=== PATIENT | male | born 1960 | race Caucasian/White ===

== ENCOUNTER 2017-05-05 09:34 | Emergency (ER) | payer BC ==
--- NOTE | 2017-05-05 09:58 | EDM.PDOC ---
ED HPI GENERAL MEDICAL PROBLEM - General Chief Complaint: Trauma Stated Complaint: FALL/HEAD INJURY/MEMORY LOSS Time Seen by Provider: 05/05/17 09:45 Source of Information: Reports: Patient, Family History Limitations: Reports: Altered Mental Status - History of Present Illness INITIAL COMMENTS - FREE TEXT/NARRATIVE: 56-year-old male presents to the ED for evaluation of closed head injury. Patient apparently was in the [place] this morning with cows and 2 bowls were fighting and pushing the cows. The cows in turn ran over top of him basically causing him to do almost a somersault and he landed hard on his head on the frozen ground. There was no loss of consciousness but he was transiently days and still remains confused with amnesia for the event. He can't remember at all what is happened to him. He can walk and talk normally. States his jaw feels like it's tight like he got slammed. He has had a previous fractured mandible on the right side with plate and screws. Denies any neck or significant spine pain. No nausea vomiting. Has have a mild headache at this time. No open wounds on his head. Onset: Today Onset Date: 05/05/17 Onset Time: 09:00 Duration: Minutes: Location: Reports: Head Quality: Reports: Ache (Mild headache) Severity: Moderate Improves with: Reports: None (Amnesia for the event) Worsens with: Reports: None Context: Reports: Trauma (Was essentially knocked to the ground hard by 2 cows did almost a somersault and landed hard on his head. He has no recollection of what has happened to him if the history is provided by his .) Associated Symptoms: Reports: Confusion. 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: Other (see below) (None.) Face Pain Score (Numeric/FACES): 4 - Related Data Allergies Allergy/AdvReac Type Severity Reaction Status Date / Time seasonal Allergy Cough Uncoded 05/05/17 09:51 Home Meds: Home Meds Fosinopril [Monopril] 10 mg PO DAILY 05/05/17 [History] amLODIPine [Norvasc] 15 mg PO DAILY 05/05/17 [History] atorvaSTATin [Lipitor] 20 mg PO DAILY 05/05/17 [History] Past Medical History Cardiovascular History: Reports: Hypertension Social & Family History - Living Situation & Occupation Living situation: Reports: 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 But there is no malocclusion. No injuries to the tongue or spitting up of blood.), Other Cardiovascular: Reports: No Symptoms, Other GI/Abdominal: Reports: No Symptoms (History of hypertension well controlled on current medications.) Genitourinary: Reports: No Symptoms Musculoskeletal: Reports: Back Pain Skin: Reports: No Symptoms (Some spasm in his left mid back with no palpable rib fractures.) Neurological: Reports: Confusion, Dizziness Psychiatric: Reports: No Symptoms ED EXAM, GENERAL - Physical Exam Exam: See Below Exam Limited By: Altered Mental Status (Amnesia for what is happened to him this morning. He is otherwise alert and oriented and answers) General Appearance: Alert ( other questions appropriately.), WD/WN, Anxious Eye Exam: Bilateral Eye: Normal Inspection, PERRL Ears: Normal External Exam, Normal TMs Nose: Normal Inspection, Normal Mucosa Throat/Mouth: Normal Inspection, Normal Lips, Normal Teeth, Normal Oropharynx, Other (No malocclusion) Head: Other (No obvious hematomas or scalp bruises or injuries identified on exam.) Neck: Normal Inspection, Tender Lateral, Tender Midline (Mild on the left side) . No: Lymphadenopathy (L), Lymphadenopathy (R) Respiratory/Chest: No Respiratory Distress, Lungs Clear, Normal Breath Sounds, No Accessory Muscle Use, Other Cardiovascular: Normal Peripheral Pulses, Regular Rate, Rhythm, No Edema, No Murmur (No obvious rib or sternal injuries on palpation.) Peripheral Pulses: 2+: Posterior Tibial (L), Posterior Tibial (R), Dorsalis Pedis (L), Dorsalis Pedis (R) GI/Abdominal: Normal Bowel Sounds, Soft, Non-Tender, No Organomegaly, No Distention Back Exam: Normal Inspection, Full Range of Motion, Other. No: CVA Tenderness ( L), CVA Tenderness (R) Extremities: Normal Inspection (No abrasions contusions or abnormalities identified on palpation of the lumbar thoracic spine.), Normal Range of Motion, Non-Tender, No Pedal Edema, Normal Capillary Refill, Other Neurological: Alert (Walked into the ED.), Oriented, CN II-XII Intact, Normal Cognition, Normal Gait, Normal Reflexes, No Motor/Sensory Deficits, Memory Loss Recent Events (Amnesia for the event) Psychiatric: Normal Affect, Normal Mood Skin Exam: Warm, Dry, Intact, Normal Color, No Rash Course - Vital Signs Last Recorded V/S: Last Vital Signs Temp 36.9 C 05/05/17 09:44 Pulse Resp 16 05/05/17 09:44 BP 131/84 05/05/17 09:44 Pulse Ox 98 05/05/17 09:44 - Radiology Interpretation Free Text/Narrative:: 56-year-old male brought to the ED by his after injury by Anjali in the [place] this morning. Appears he was knocked to the ground very hard by cows moving aggressively hit his head hard on the frozen ground with no loss of consciousness but transiently dazed. He has amnesia for the event. He is somewhat frustrated by his confusion of not being able to remember what happened to him this morning. Neuro exam is completely normal there is no outward signs of trauma to the head neck ears nose or mouth. Chest wall also does not appear to be injured. - Re-Assessments/Exams Free Text/Narrative Re-Assessment/Exam: 05/05/17 10:[address] of the brain reveals no intracranial bleeding or mass effect. No skull fractures identified. There is very mild beginnings of small vessel skinny changes in both basal ganglia. CT of the cervical spine reveals no fractures in normal alignment. There is mild degenerative disc disease particular a from C4-C7 level. Patient is thus suffered a closed head injury with concussion with amnesia for the event. He will be advised to take life real easy for the next 2 weeks. Minimal exertional activity etc. 05/05/17 11:00: Patient felt quite dizzy when he first got up from the bed at the time of discharge and did lay back down for a period of time the second time he got up he felt better and he decided to leave Departure - Departure Time of Disposition: 10:25 Disposition: Home, Self-Care 01 Condition: Fair Clinical Impression: Closed head injury with concussion Qualifiers: Encounter type: initial encounter Loss of consciousness presence/duration: without LOC Qualified Code(s): S06.0X0A - Concussion without loss of consciousness, initial encounter - Discharge Information Instructions: Concussion, Adult, Cicn-ib-Lhda, Post-Concussion Syndrome, Easy- to-Read Referrals: PCP,None [Primary Care Provider] - Forms: ED Department Discharge Additional Instructions: Evaluation in the emergency room today in regards to close to injuries suffered in your not hard to the ground this morning by Kam in the [place]. You have no recollection of the events of this morning indicating a concussion has occurred. CT of the brain is within normal limits showing no intracranial bleeding or mass effect or skull fracture. Similarly CT of the neck bones was carried out as well 20% of head injuries have injuries to the neck. No injuries to the neck bones were identified. There is mild degenerative arthritic changes from C4-C7 which is normal for age. Treatment is time to heal. Basically the brain needs a rest for at least 48 hours where you don't have to cut straight hard work hard or do anything that would increase her blood pressure for the next 2 days. After this it's activity as tolerated with nothing that would protect her head at risk of another injury or concussion. He may experiencing slight blurred vision intermittently headache intermittent nausea feeling of being off balance all of these symptoms usually dissipate over a period of 7-10 days. It is okay to take Tylenol or Motrin for headache if needed. Follow-up with personal physician if not completely back to normal in 10 days' time.
--- NOTE | 2017-05-05 10:16 | CT ---
Head CT Technique: Multiple axial sections through the brain were obtained. Intravenous contrast not utilized. Comparison: No previous intracranial imaging. Findings: Ventricles along with basal cisterns and sulci over convexities are within normal limits for the patient's age. No abnormal parenchymal densities are seen. No evidence of intracranial hemorrhage. No midline shift or mass effect is seen. Bone window settings were reviewed which shows minimal fluid within the left maxillary sinus most likely due to retained secretions. No acute calvarial abnormality is seen. Impression: 1. Minimal fluid which is felt to be incidental within the left maxillary sinus. 2. No acute intracranial abnormality is identified. Diagnostic code #2
--- NOTE | 2017-05-05 10:20 | CT ---
CT cervical spine Technique: Multiple axial sections were obtained from above C1 inferiorly through the T1-T2 disc interspace. Reconstructed sagittal and coronal images were reviewed. Findings: Small metallic density is projected within the soft tissues of the posterior and lower neck which is likely old. Visualized sinuses and middle ear cavities are clear. Posterior skull base is intact. Vertebral bodies and posterior arches are intact. Vertebral bodies and disc spaces are maintained. No bony central or bony neural foraminal stenosis is seen. No abnormal subluxation is seen on the reconstructed sagittal images. Minimal degenerative change is noted between the dens and anterior arch of C1. Impression: 1. Nothing acute is identified on CT study of the cervical spine. Other incidental findings as noted above. Diagnostic code #2
== END 2017-05-05 11:05 | disposition home or self-care (01) ==
LOC: JD.ED 09:34
DX: S06.0X0A Concussion without loss of consciousness, initial encounter (principal); I10 Essential (primary) hypertension; Z79.899 Other long term (current) drug therapy; Z88.8 Allergy status to other drugs, medicaments and biological substances; W55.29XA Other contact with cow, initial encounter
CPT/HCPCS: 70450; 70450-26; 72125; 72125-26; 99283; 99284-25

== ENCOUNTER 2019-02-27 00:12 | Emergency (ER) | payer BC, OTHER ==
[2019-02-27] MEDS ORDERED: Metoclopramide 10 MG/2 ML SDV IVPUSH ONE (00:48)
[2019-02-27] MEDS ORDERED: HYDROmorphone 1 MG/ML Syringe IVPUSH ONE (00:48)
--- NOTE | 2019-02-27 00:49 | EDM.PDOC ---
ED HPI GENERAL MEDICAL PROBLEM - General Chief Complaint: Headache Stated Complaint: HEADACHE Time Seen by Provider: 02/27/19 00:47 Source of Information: Reports: Patient, Family () History Limitations: Reports: No Limitations - History of Present Illness INITIAL COMMENTS - FREE TEXT/NARRATIVE: 58-year-old male attends the ED with diffuse mid facial pain and headache. States last week he seen an oral surgeon and had 5 of his upper mid teeth removed at the same setting. His dentures were placed in the uppers at the same sitting. He states initially the pain wasn't too bad but over the last 12 hours the pain is intensified immensely. He's been taking Motrin all day and took 2 Tylenol No. 3's about 1800 hrs. which made no difference in the severity of the pain. Pain is in his upper gingiva. He took his dentures out this afternoon and can't put them back in because of swelling. Pain radiates up into his midface particular a burning in his nose and both maxillary sinuses and a severe pounding throbbing headache in the anterior face and head. Almost makes him nauseated. He did eat a little bit of rice for supper 9:00 tonight. No neck pain. No notable fever or chills. Onset: Gradual Onset Date: 02/26/19 (Gradual increased pain as the day went on yesterday. At present can't stand the severity of the pain) Duration: Hour(s):, Getting Worse Location: Reports: Face Quality: Reports: Ache (Mid face particularly upper gingiva both maxillary sinuses and nose.), Burning, Throbbing (Is more of a burning sensation in his nose) Severity: Severe (face. Pain is 10 out of 10) Improves with: Reports: None (Motrin and Tylenol 3 did not help at all.) Worsens with: Reports: None Context: Reports: Other. Denies: Activity, Exercise, Lifting, Sick Contact, Trauma Associated Symptoms: Reports: Headaches, Loss of Appetite, Nausea/Vomiting, Weakness. 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, Other (see below) (Motrin Tylenol 3) Headache Pain Score (Numeric/FACES): 9 - Related Data Allergies Allergy/AdvReac Type Severity Reaction Status Date / Time seasonal Allergy Cough Uncoded 02/27/19 00:27 Home Meds: Home Meds Fosinopril [Monopril] 10 mg PO DAILY 05/05/17 [History] amLODIPine [Norvasc] 15 mg PO DAILY 05/05/17 [History] atorvaSTATin [Lipitor] 20 mg PO DAILY 05/05/17 [History] Amoxicillin/Potassium Clav [Augmentin 500-125 Tablet] 1 each PO BID #20 tablet 02/27/19 [Rx] oxyCODONE HCl/Acetaminophen [Percocet 5-325 mg Tablet] 1 - 2 each PO Q4H PRN # 18 tablet 02/27/19 [Rx] Past Medical History Cardiovascular History: Reports: High Cholesterol, Hypertension - Past Surgical History HEENT Surgical History: Reports: Oral Surgery, Other (See Below) Other HEENT Surgeries/Procedures: fractured jaw with surgical repair Social & Family History - Tobacco Use Smoking Status *Q: Never Smoker - Caffeine Use Caffeine Use: Reports: Coffee - Living Situation & Occupation Living situation: Reports: 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 Denies: Fever, Chills HEENT: Reports: Other (Pain in the upper gingiva at recent multiple teeth extractions. On 5 days ago. Pain in the mid face over the maxillary sinuses.). Denies: Glasses, Hearing Loss, Nosebleed, Sinus Problem, Throat Pain, Throat Swelling Respiratory: Reports: No Symptoms Cardiovascular: Reports: Blood Pressure Problem Endocrine: Reports: No Symptoms GI/Abdominal: Reports: Decreased Appetite, Nausea : Reports: Frequency, Other Musculoskeletal: Reports: Back Pain (Nocturia usually 2), Joint Pain (Knees hips lower back) Skin: Reports: No Symptoms Neurological: Reports: No Symptoms Psychiatric: Reports: No Symptoms Hematologic/Lymphatic: Reports: No Symptoms Immunologic: Reports: No Symptoms - Physical Exam Exam: See Below Exam Limited By: No Limitations General Appearance: Alert, WD/WN, Moderate Distress (Appears to be in significant discomfort.) Eye Exam: Bilateral Eye: Normal Inspection Ears: Normal TMs Nose: Normal Inspection Throat/Mouth: Other (The upper gingiva are about 3 times thicker than normal. There are not erythematous they're just very swollen. You can see where his teeth were extracted and there is still grayish yellowish material in them almost as if the roots of the tooth are still present. He has pain to palpation over both maxillary sinuses.) Head Exam: Facial Tenderness, Sinus Tenderness (Over both maxillary sinuses. X- ray sinus) Neck: Normal Inspection, Supple, Non-Tender, Full Range of Motion. No: Lymphadenopathy (R), Tender Midline Respiratory/Chest: No Respiratory Distress, Lungs Clear, Normal Breath Sounds, No Accessory Muscle Use, Chest Non-Tender Cardiovascular: Normal Peripheral Pulses, Regular Rate, Rhythm, No Edema, No Gallop, No Murmur, No Rub Neuro Exam (Abbreviated): Alert, Oriented, CN II-XII Intact, Normal Cognition Extremities: Normal Inspection, Normal Range of Motion, Non-Tender Psychiatric: Normal Mood, Other Skin Exam: Warm, Dry, Normal Color, No Rash Course - Vital Signs Last Recorded V/S: Last Vital Signs Temp 36.2 C 02/27/19 00:23 Pulse 61 02/27/19 00:23 Resp 16 02/27/19 00:23 BP 160/84 H 02/27/19 00:23 Pulse Ox 93 L 02/27/19 00:23 - Orders/Labs/Meds Orders: Active Orders 24 hr Category Date Time Status Maxillofacial w/o CM [Max Facial Sinus wo Cont] [CT] Exams 02/27/19 00:48 Taken Stat Meds: Medications Discontinued Medications Generic Name Dose Route Start Last Admin Trade Name Venturaq PRN Reason Stop Dose Admin Dexamethasone 10 mg 02/27/19 01:36 02/27/19 01:46 Dexamethasone IV 02/27/19 01:37 10 mg ONETIME ONE Administration Hydromorphone HCl 1 mg 02/27/19 00:48 02/27/19 00:56 Dilaudid IVPUSH 02/27/19 00:49 1 mg ONETIME ONE Administration Dextrose/Sodium Chloride 1,000 mls @ 999 mls/hr 02/27/19 01:00 02/27/19 00:54 Dextrose 5%-Normal Saline IV 999 mls/hr ASDIRECTED CHUNG Administration Ceftriaxone Sodium 2 gm/ 100 mls @ 200 mls/hr 02/27/19 01:45 02/27/19 01:47 Sodium Chloride IV 200 mls/hr Q24H CHUNG Administration Ketorolac Tromethamine 30 mg 02/27/19 01:00 02/27/19 00:54 Toradol IVPUSH 30 mg ONETIME CHUNG Administration Metoclopramide HCl 10 mg 02/27/19 00:48 02/27/19 00:55 Reglan IVPUSH 02/27/19 00:49 10 mg ONETIME ONE Administration - Radiology Interpretation Free Text/Narrative:: 58-year-old male attends the ED gradually worsening mid facial pain. Patient seen oral surgeon last week and had 5 of his upper teeth extracted at the same setting. His dentures replaced at that time as well. As the day went on today the pressure and pain in his midface got worse and he had a take his dentures out. 2 hours later try to put him back in but was unable to do so due to the swelling. Pain radiates up into both maxillary sinuses and a burning sensation in his nose and now a diffuse frontal headache. He does not respond to Tylenol No. 3 or Motrin. Patient states constant throbbing headache midface with no neck pain. Exam reveals that the upper gingiva are about 3 times normal thickness with no obvious erythema. He is tender over his maxillary sinuses. Plan IV D5 normal saline at open. Given Toradol 30 mg IV with Reglan 10 mg IV and Dilaudid 1 mg IV for pain relief. Plan will be maxillofacial sinus CT to see if he needs antibiotics. - Re-Assessments/Exams Free Text/Narrative Re-Assessment/Exam: 02/27/19 01:35 CT of the maxillofacial bones reveals both maxillary sinuses are fairly full of fluid at least 50%. There is air-fluid levels to suggest acute sinus infection. There appears to be defects in the floor of the sinuses suggestive of recent dental removal of canine tooth is likely culprits. Pain is finally under control and the patient is able to rest. We'll give him Rocephin 2 g intravenously. He then will be tentatively discharged home on Augmentin 500/ 125 mg twice a day for another 9 days. Percocet tabs 5/325 mg tabs one or 2 every 4-6 hours for pain relief. I'm also going to give him a dose of dexamethasone 10 mg IV to help reduce some of the facial swelling and gingiva swelling. Departure - Departure Time of Disposition: 02:20 Disposition: Home, Self-Care 01 Condition: Fair Clinical Impression: Chronic sinusitis of both maxillary sinuses, Sinusitis - Discharge Information *PRESCRIPTION DRUG MONITORING PROGRAM REVIEWED*: Not Applicable *COPY OF PRESCRIPTION DRUG MONITORING REPORT IN PATIENT SUZANNE: Not Applicable Prescriptions: Amoxicillin/Potassium Clav [Augmentin 500-125 Tablet] 1 each PO BID #20 tablet oxyCODONE HCl/Acetaminophen [Percocet 5-325 mg Tablet] 1 - 2 each PO Q4H PRN # 18 tablet PRN Reason: pain relief. Instructions: Sinusitis, Adult, [id number] Referrals: PCP,None [Primary Care Provider] - Forms: ED Department Discharge Additional Instructions: Evaluation the emergency room tonight in regards to diffuse facial pain felt primarily above the maxilla where you had recent 5 teeth removed maxillary sinuses and forehead with a severe headache. CT of the maxillofacial sinuses shows no active abscess formation in dental extraction sites. It does reveal bilateral significant maxillary sinusitis. The frontal sinuses are clear. No other signs of infection are evident in the facial structures. You're treated with Dilaudid 1 mg IV and Toradol 30 mg IV with Reglan 10 mg IV for pain and nausea relief. You're also given dexamethasone 10 mg IV which will help reduce some of the pain and swelling over the next 6-12 hours. Initial dose of antibiotic was given in the ED Rocephin 2 g intravenously for infection in the sinuses. Treatment at home will be Augmentin 875/125 mg tablet twice daily for the next 10 days to clear up infection completely. May continue Motrin 600 mg every 6 hours to reduce pain and inflammation. May use Percocet tabs 5/325 mg one or 2 every 4-6 hours needed for pain relief until the antibiotics become effective which is usually 48 hours. - My Orders Last 24 Hours: My Active Orders 02/27/19 00:48 Maxillofacial w/o CM [Max Facial Sinus wo Cont] [CT] Stat - Assessment/Plan Last 24 Hours: My Active Orders 02/27/19 00:48 Maxillofacial w/o CM [Max Facial Sinus wo Cont] [CT] Stat
[2019-02-27] MEDS ORDERED: Dextrose 5%-0.9% NaCl 1,000 ML IV SCH (01:00)
[2019-02-27] MEDS ORDERED: Ketorolac 30 MG/ML SDV IVPUSH SCH (01:00)
[2019-02-27] MEDS ORDERED: Dexamethasone 4 MG/ML 5 ML MDV IV ONE (01:36)
[2019-02-27] MEDS ORDERED: cefTRIAXone 2 GM in Sodium Chloride 0.9% 100 ML IV SCH (01:45)
--- NOTE | 2019-02-27 07:09 | CT ---
CT facial bones Technique: Multiple axial sections through the facial bones were obtained. Reconstructed coronal and sagittal images were reviewed. Comparison: Prior head CT study partially showing the paranasal sinuses dated 05/05/17. Findings: Mild to moderate mucosal thickening is seen within both maxillary sinuses. Minimal areas of mucosal thickening are noted anteriorly within the ethmoid sinuses. Patient is edentulous within the maxilla. Mastoid sinuses are clear. No acute bony abnormality is appreciated. Plate and screws affixing old healed fracture within the right mandibular neck is noted. Impression: 1. Mild to moderate mucosal thickening within the maxillary sinuses on both sides with minimal mucosal thickening seen within the anterior ethmoid sinuses. These findings have the appearance of chronic sinusitis. 2. Nothing acute is appreciated. Diagnostic code #2 I agree with preliminary report from [facility], finalized on 02/27/19, 3:00 AM Central Time
== END 2019-02-27 02:26 | disposition home or self-care (01) ==
LOC: JD.ED 00:12
DX: J32.0 Chronic maxillary sinusitis (principal); I10 Essential (primary) hypertension; E78.00 Pure hypercholesterolemia, unspecified; Z88.8 Allergy status to other drugs, medicaments and biological substances; Z79.899 Other long term (current) drug therapy
CPT/HCPCS: 70486; 96361; 96365; 96375; 99284; J0696; J1100; J1170; J1885; J2765; J7030; J7042

== ENCOUNTER 2024-07-28 18:51 | Inpatient (IN) | payer BC ==
[2024-07-28] MEDS: Albuterol/Ipratropium 3.0-0.5 MG/3 ML Neb Soln NEB ONE (19:39)
[2024-07-28 19:47] LABS: BASOPHILS ABSOLUTE AUTO 0.1 K/mm3 (0.0-0.2); BASOPHILS PERCENT AUTO 0.5 % (0.0-1.0); EOSINOPHILS ABSOLUTE AUTO 0.1 K/mm3 (0.0-0.4); EOSINOPHILS PERCENT AUTO 0.9 % (0.0-6.0); HEMATOCRIT 40.7 % (42.0-52.0); HEMOGLOBIN 13.6 gm/dl (14.0-18.0); IMMATURE GRAN ABSOLUTE AUTO 0.03 K/mm3 (0.00-0.05); IMMATURE GRAN PERCENT AUTO 0.3 % (0.0-0.4); LYMPHOCYTES ABSOLUTE AUTO 1.3 K/mm3 (1.0-4.8); LYMPHOCYTES PERCENT AUTO 14.1 % (24.0-44.0); MEAN CORPUSCULAR HEMOGLOBIN 29.9 pg (28.0-32.0); MEAN CORPUSCULAR HGB CONC 33.4 g/dl (32.0-36.0); MEAN CORPUSCULAR VOLUME 89.5 fl (83.0-99.0); MEAN PLATELET VOLUME 12.2 fl (9.4-12.4); MONOCYTES ABSOLUTE AUTO 0.8 K/mm3 (0.0-0.8); MONOCYTES PERCENT AUTO 8.6 % (0.0-8.0); NEUTROPHILS ABSOLUTE AUTO 6.9 K/mm3 (1.8-7.7); NEUTROPHILS PERCENT AUTO 75.6 % (41.0-71.0); PLATELET COUNT,PLT 186 K/mm3 (150-400); RED BLOOD CELL COUNT 4.55 M/mm3 (4.52-5.90)
[2024-07-28 20:09] LABS: A/G RATIO 1.4 (1-2); ANION GAP 10.6 (5-15); BILIRUBIN TOTAL 0.8 mg/dL (0.2-1.0); BUN/CREATININE RATIO 21.9 (14-18); CALCIUM 8.4 mg/dL (8.5-10.1); CREATININE 1.6 mg/dL (0.7-1.3); EST CRCL DRUG DOSING (CG) 42.09 mL/min; POTASSIUM,K 3.6 mEq/L (3.5-5.1); PROTEIN TOTAL,TP 5.2 g/dl (6.4-8.2)
[2024-07-28] MEDS: Furosemide 20 MG/2 ML VIAL IVPUSH ONE (21:53)
[2024-07-29] MEDS: Acetaminophen 325 MG Tab PO PRN (02:26)
[2024-07-29 05:39] LABS: BASOPHILS PERCENT AUTO 0.5 % (0.0-1.0); EOSINOPHILS ABSOLUTE AUTO 0.1 K/mm3 (0.0-0.4); EOSINOPHILS PERCENT AUTO 1.1 % (0.0-6.0); HEMOGLOBIN 13.6 gm/dl (14.0-18.0); IMMATURE GRAN ABSOLUTE AUTO 0.02 K/mm3 (0.00-0.05); IMMATURE GRAN PERCENT AUTO 0.3 % (0.0-0.4); LYMPHOCYTES ABSOLUTE AUTO 1.3 K/mm3 (1.0-4.8); LYMPHOCYTES PERCENT AUTO 16.5 % (24.0-44.0); MEAN CORPUSCULAR HEMOGLOBIN 30.2 pg (28.0-32.0); MEAN CORPUSCULAR HGB CONC 33.2 g/dl (32.0-36.0); MEAN CORPUSCULAR VOLUME 90.9 fl (83.0-99.0); MEAN PLATELET VOLUME 12.6 fl (9.4-12.4); MONOCYTES ABSOLUTE AUTO 0.6 K/mm3 (0.0-0.8); MONOCYTES PERCENT AUTO 7.3 % (0.0-8.0); NEUTROPHILS ABSOLUTE AUTO 5.9 K/mm3 (1.8-7.7); NEUTROPHILS PERCENT AUTO 74.3 % (41.0-71.0); PLATELET COUNT,PLT 183 K/mm3 (150-400); RED BLOOD CELL COUNT 4.51 M/mm3 (4.52-5.90); WHITE BLOOD CELL COUNT,WBC 7.93 K/mm3 (3.9-11.3)
[2024-07-29 05:49] LABS: A/G RATIO 1.3 (1-2); ALBUMIN 2.9 g/dl (3.4-5.0); ANION GAP 12.5 (5-15); BILIRUBIN TOTAL 0.9 mg/dL (0.2-1.0); BUN/CREATININE RATIO 28.5 (14-18); CALCIUM 8.1 mg/dL (8.5-10.1); CREATININE 1.3 mg/dL (0.7-1.3); EST CRCL DRUG DOSING (CG) 51.8 mL/min; POTASSIUM,K 3.5 mEq/L (3.5-5.1); PROTEIN TOTAL,TP 5.1 g/dl (6.4-8.2)
[2024-07-29] MEDS ORDERED: Albuterol/Ipratropium 3.0-0.5 MG/3 ML Neb Soln NEB PRN (06:25)
[2024-07-29] MEDS ORDERED: Ondansetron 4 MG/2 ML SDV IV PRN (06:25)
[2024-07-29] MEDS: Enoxaparin 40 MG/0.4 ML Syringe SUBCUT SCH (08:43)
[2024-07-29] MEDS: Furosemide 40 MG/4 ML VIAL IVPUSH ONE ×2 (08:43→14:59)
[2024-07-29] MEDS: Potassium Chloride 20 MEQ Tab.ER PO SCH (10:14)
[2024-07-29] MEDS: Magnesium Sulfate/Water Premix 2 GM in Premix Bag 1 BAG IV ONE (10:14)
[2024-07-29] MEDS: rOPINIRole 0.25 MG Tab PO PRN (21:13)
[2024-07-29] MEDS: hydrOXYzine HCl 10 MG Tab PO PRN (21:13)
[2024-07-30 04:41] LABS: HEMOGLOBIN 14.1 gm/dl (14.0-18.0); MEAN CORPUSCULAR HEMOGLOBIN 29.6 pg (28.0-32.0); MEAN CORPUSCULAR HGB CONC 32.8 g/dl (32.0-36.0); MEAN CORPUSCULAR VOLUME 90.1 fl (83.0-99.0); MEAN PLATELET VOLUME 12.6 fl (9.4-12.4); PLATELET COUNT,PLT 193 K/mm3 (150-400); RED BLOOD CELL COUNT 4.77 M/mm3 (4.52-5.90); WHITE BLOOD CELL COUNT,WBC 8.07 K/mm3 (3.9-11.3)
[2024-07-30 05:14] LABS: A/G RATIO 1.3 (1-2); ALBUMIN 2.9 g/dl (3.4-5.0); ANION GAP 10.5 (5-15); BUN/CREATININE RATIO 23.8 (14-18); CALCIUM 8.3 mg/dL (8.5-10.1); CREATININE 1.3 mg/dL (0.7-1.3); EST CRCL DRUG DOSING (CG) 51.8 mL/min; MAGNESIUM 1.9 mg/dL (1.8-2.4); POTASSIUM,K 3.5 mEq/L (3.5-5.1); PROTEIN TOTAL,TP 5.2 g/dl (6.4-8.2)
[2024-07-30] MEDS: Metoprolol Succinate 25 MG Tab.ER PO SCH (09:31)
[2024-07-30] MEDS: Potassium Chloride 20 MEQ Tab.ER PO SCH (09:32)
[2024-07-30] MEDS: Empagliflozin 10 MG Tab PO SCH (09:32)
[2024-07-30] MEDS: Lisinopril 2.5 MG Tab PO SCH (09:32)
[2024-07-30] MEDS: atorvaSTATin 20 MG Tab PO SCH (09:32)
[2024-07-30] MEDS: Furosemide 40 MG/4 ML VIAL IVPUSH SCH (09:37)
[2024-07-30] MEDS: Furosemide 40 MG/4 ML VIAL IVPUSH ONE (17:28)
[2024-07-31 04:23] LABS: HEMATOCRIT 45.2 % (42.0-52.0); MEAN CORPUSCULAR HEMOGLOBIN 30.2 pg (28.0-32.0); MEAN CORPUSCULAR HGB CONC 33.2 g/dl (32.0-36.0); MEAN CORPUSCULAR VOLUME 91.1 fl (83.0-99.0); MEAN PLATELET VOLUME 12.7 fl (9.4-12.4); PLATELET COUNT,PLT 204 K/mm3 (150-400); RED BLOOD CELL COUNT 4.96 M/mm3 (4.52-5.90); WHITE BLOOD CELL COUNT,WBC 8.17 K/mm3 (3.9-11.3)
[2024-07-31 04:46] LABS: A/G RATIO 1.3 (1-2); ALBUMIN 3.1 g/dl (3.4-5.0); ANION GAP 10.9 (5-15); BILIRUBIN TOTAL 0.8 mg/dL (0.2-1.0); BUN/CREATININE RATIO 25.7 (14-18); CALCIUM 8.2 mg/dL (8.5-10.1); CREATININE 1.4 mg/dL (0.7-1.3); EST CRCL DRUG DOSING (CG) 47.91 mL/min; MAGNESIUM 1.9 mg/dL (1.8-2.4); POTASSIUM,K 3.9 mEq/L (3.5-5.1); PROTEIN TOTAL,TP 5.5 g/dl (6.4-8.2)
[2024-07-31] MEDS: Furosemide 40 MG Tab PO SCH (06:16)
== END 2024-07-31 12:00 | disposition home or self-care (01) | DRG 194 ==
LOC: JD.ED 18:51 → JD.MS 21:18
PROVIDERS: ADMIT Internal Medicine; ATTEND Internal Medicine
DX: I11.0 Hypertensive heart disease with heart failure (principal); I50.21 Acute systolic (congestive) heart failure; J96.01 Acute respiratory failure with hypoxia; E78.00 Pure hypercholesterolemia, unspecified; H54.7 Unspecified visual loss; F15.90 Other stimulant use, unspecified, uncomplicated; N17.9 Acute kidney failure, unspecified; Z91.09 Other allergy status, other than to drugs and biological substances; Z79.02 Long term (current) use of antithrombotics/antiplatelets; Z79.2 Long term (current) use of antibiotics; Z79.899 Other long term (current) drug therapy; Z87.81 Personal history of (healed) traumatic fracture; Z98.890 Other specified postprocedural states; Z87.891 Personal history of nicotine dependence
CPT/HCPCS: 36415; 71046; 71046-26; 80053; 83735; 83880; 84484; 85025; 85027; 85379; 87428-QW; 93005; 93010; 93306; 94640; 94761; 99285; A9270-GY; J1650; J1940; J3475; J7620-GY